=== PATIENT | female | born 1995 | race Caucasian/White ===

== ENCOUNTER 2024-04-01 14:09 | Emergency (ER) | payer BC, MEDICARE ==
[~2024-04-01] VITALS: Ht 162.6 cm; Wt 95.3 kg
[2024-04-01] MEDS: ACETAMINOPHEN 325 MG TAB PO ONE (14:41)
[2024-04-01] MEDS: PENICILLIN G BENZATHINE LA 1.2 MU TBX IM STA (14:46)
[2024-04-01 15:57] VITALS: PULSE 106; RESP 16; TEMP 99.7; O2SAT 97
== END 2024-04-01 15:56 | disposition home or self-care (01) ==
LOC: ER 14:28
DX: J02.0 Streptococcal pharyngitis (principal); H92.09 Otalgia, unspecified ear; J45.909 Unspecified asthma, uncomplicated; R00.0 Tachycardia, unspecified
CPT/HCPCS: 99283; J0561